=== PATIENT | male | born 1965 ===

== ENCOUNTER 2017-02-01 17:18 | Emergency (ER) | payer BC ==
[2017-02-01 17:58] VITALS: BP 144/98
--- NOTE | 2017-02-01 18:23 | UC ---
Back Pain HPI - HPI Summary HPI Summary: Acute low back pain starting 2-3 days ago. Concerned about kidney infection, though denies fevers, vomiting, or true flank pain. "Maybe" increased urinary frequency, also had urinary infections as young child. No recent injuries. No pain, numbness, weakness, or tingling anywhere in lower body. - History of Current Complaint Chief Complaint: UCGeneralIllness Stated Complaint: LOW BACK PAIN KIDNEY AREA Time Seen by Provider: 02/01/17 17:40 Hx Obtained From: Patient Onset/Duration: Gradual Onset, Lasting Days Timing: Constant Severity Initially: Moderate Severity Currently: Moderate Character: Dull, Aching, Stiffness Aggravating: Movement Alleviating: Rest Associated Signs And Symptoms: Negative: Redness, Fever, Numbness, Tingling, Bladder Incontinence, Bowel Incontinence - Allergies/Home Medications Allergies/Adverse Reactions: Allergies Allergy/AdvReac Type Severity Reaction Status Date / Time No Known Allergies Allergy Verified 02/01/17 17:58 PMH/Surg Hx/FS Hx/Imm Hx Previously Healthy: Yes - Surgical History Surgical History: Yes Surgery Procedure, Year, and Place: appy, right leg stent - Family History Known Family History: Positive: Hypertension - Social History Occupation: Employed Full-time Lives: With Family Alcohol Use: Occasionally Substance Use Type: None Smoking Status (MU): Heavy Every Day Tobacco Smoker Type: Cigarettes Amount Used/How Often: 1 pack daily Review of Systems Constitutional: Negative Skin: Negative Eyes: Negative ENT: Negative Respiratory: Negative Cardiovascular: Negative Gastrointestinal: Negative Genitourinary: Negative Motor: Negative Neurovascular: Negative Musculoskeletal: Decreased ROM Neurological: Negative Psychological: Negative All Other Systems Reviewed And Are Negative: Yes Physical Exam Triage Information Reviewed: Yes Appearance: Well-Appearing, No Pain Distress, Well-Nourished Vital Signs: Initial Vital Signs Temp 99.4 F 02/01/17 17:54 Pulse 97 02/01/17 17:54 Resp 16 02/01/17 17:54 BP 144/98 02/01/17 17:54 Pulse Ox 96 02/01/17 17:54 Vital Signs Reviewed: Yes Eye Exam: Normal Eyes: Positive: Conjunctiva Clear ENT Exam: Normal ENT: Positive: Normal ENT inspection, Hearing grossly normal, Pharynx normal, TMs normal Dental Exam: Normal Neck exam: Normal Neck: Positive: Supple, Nontender, No Lymphadenopathy Respiratory Exam: Normal Respiratory: Positive: Chest non-tender, Lungs clear, Normal breath sounds, No respiratory distress, No accessory muscle use Cardiovascular Exam: Normal Cardiovascular: Positive: RRR, No Murmur Musculoskeletal Exam: Other - pain over low back muscles Musculoskeletal: Positive: Strength Intact, ROM Intact, No Edema Neurological Exam: Normal - DTRs 2+ bilat Psychological Exam: Normal Skin Exam: Normal Back Pain Course/Dx - Differential Dx/Diagnosis Provider Diagnoses: low back pain Discharge - Discharge Plan Condition: Stable Disposition: HOME Prescriptions: Cyclobenzaprine TAB* [Flexeril 10 MG TAB*] 10 mg PO TID PRN #15 tab PRN Reason: Pain Naproxen Sodium [Naproxen Sodium 500 MG TAB] 500 mg PO BID #20 tab Patient Education Materials: Acute Low Back Pain (ED) Forms: *Work Release Referrals: Rios Peñaloza [Primary Care Provider] - 2 Weeks Additional Instructions: If you develop fever, trouble walking, or incontinence, please get seen again right away.
== END 2017-02-01 18:32 | disposition home or self-care (01) ==
LOC: UCCORT 17:18
DX: M54.5 Low back pain (principal); F17.210 Nicotine dependence, cigarettes, uncomplicated
CPT/HCPCS: 81003; 99212; G0463

== ENCOUNTER → 2017-12-12 09:04 | Emergency (ER) | payer BC ==
[2017-12-12 11:21] VITALS: BP 150/84
--- NOTE | 2017-12-12 11:46 | UC ---
FLU HPI - HPI Summary HPI Summary: Pt c/o sudden onset fever, chills, cough, body aches X 3 days. - History of Current Complaint Stated Complaint: FLU LIKE SYMPTOMS Hx Obtained From: Patient Onset/Duration: Sudden Onset, Lasting Days Severity Currently: Moderate Severity Initially: Mild Pain Intensity: 3 Associated Signs & Symptoms: Positive: Fever, Myalgia, Cough, Nasal Congestion Related Hx: Possible Flu/Infectious Exposure - Risk Factors Influenza Risk Factors: Negative - Allergy/Home Medications Allergies/Adverse Reactions: Allergies Allergy/AdvReac Type Severity Reaction Status Date / Time No Known Allergies Allergy Verified 12/12/17 11:21 Home Medications: Home Medications Dm/Pseudoephed/Acetaminophen [Day-Time Cold-Flu Softgel] 1 cap PO ONCE 12/12/17 [History Confirmed 12/12/17] PMH/Surg Hx/FS Hx/Imm Hx Previously Healthy: Yes - Surgical History Surgical History: Yes Surgery Procedure, Year, and Place: APPENDECTOMY. STENT PLACED TO THE RIGHT LEG FOR PAD - Family History Known Family History: Positive: Hypertension - Social History Occupation: Employed Full-time Lives: With Family Alcohol Use: Occasionally Substance Use Type: None Smoking Status (MU): Heavy Every Day Tobacco Smoker Type: Cigarettes Amount Used/How Often: 1 PPD X 20 YEARS Have You Smoked in the Last Year: Yes Review of Systems Constitutional: Fever, Chills, Fatigue Skin: Negative Eyes: Negative ENT: Sinus Congestion Respiratory: Cough Cardiovascular: Negative Gastrointestinal: Negative Genitourinary: Negative Motor: Negative Neurovascular: Negative Musculoskeletal: Myalgia Neurological: Headache Psychological: Negative Is Patient Immunocompromised?: No All Other Systems Reviewed And Are Negative: Yes Physical Exam Triage Information Reviewed: Yes Appearance: Ill-Appearing Vital Signs: Initial Vital Signs Temp 98.2 F 12/12/17 11:13 Pulse 75 12/12/17 11:13 Resp 16 12/12/17 11:13 BP 150/84 12/12/17 11:13 Pulse Ox 97 12/12/17 11:13 Vital Signs Reviewed: Yes Eye Exam: Normal ENT Exam: Other ENT: Positive: Nasal congestion Dental Exam: Normal Neck exam: Normal Respiratory Exam: Normal Respiratory: Positive: Normal breath sounds Cardiovascular Exam: Normal Musculoskeletal Exam: Normal Neurological Exam: Normal Psychological Exam: Normal Skin Exam: Normal Diagnostics - Laboratory Diagnostic Studies Completed/Ordered: RApid Flu positive A Flu Course/Dx - Differential Dx/Diagnosis Differential Diagnosis/HQI/PQRI: Bronchitis, Influenza, Pneumonia Provider Diagnoses: INfluenza A Discharge - Discharge Plan Condition: Stable Disposition: HOME Prescriptions: Oseltamivir CAP* [Tamiflu CAP*] 75 mg PO Q12H #10 cap predniSONE TAB* [Deltasone TAB*] 40 mg PO DAILY #8 tab Patient Education Materials: Influenza (ED) Forms: *Work Release Referrals: HOWIE Hodge [Primary Care Provider] - If Needed
== END | disposition home or self-care (01) ==
LOC: UCCORT 09:04
DX: J09.X2 Influenza due to identified novel influenza A virus with other respiratory manifestations (principal); F17.210 Nicotine dependence, cigarettes, uncomplicated
CPT/HCPCS: 87502; 99212; G0463